=== PATIENT | female | born 1970 | race African-American/Black ===

== ENCOUNTER 2019-01-29 15:16 | Observation (INO) | payer SELFPAY ==
[2019-01-29] MEDS ORDERED: ASPIRIN 81 MG TABLET, CHEWABLE PO ONE (15:40)
--- NOTE | 2019-01-29 15:41 | ER Document Report ---
ED Medical Screen (RME) - General Chief Complaint: Abdominal Pain Stated Complaint: ABDOMINAL PAIN Time Seen by Provider: 01/29/19 15:35 Mode of Arrival: Ambulatory Information source: Patient Notes: Patient presents to the emergency department with multiple complaints. She complains of lower abdominal pain that radiates to her low back and down her buttocks. Also reports recent problems with constipation. Reports history of hemorrhoids. Reports for the past 2 stools, diarrhea, she has had blood in the toilet. Also complains of chest tightness radiates up her left side of her neck. Reports history of abnormal stress test. Denies fever vomiting pain with void. Reports when she does try to have a bowel movement she has sharp pains in her rectum. I have greeted and performed a rapid initial assessment of this patient. A comprehensive ED assessment and evaluation of the patient, analysis of test results and completion of the medical decision making process will be conducted by additional ED providers. Dictation of this chart was performed using voice recognition software; therefore, there may be some unintended grammatical errors. TRAVEL OUTSIDE OF THE [place] IN LAST 30 DAYS: No - Related Data Allergies/Adverse Reactions: No Known Allergies Allergy (Verified 09/07/13 10:38) Past Medical History - Past Medical History Cardiac Medical History: Reports: Hx Hypercholesterolemia - off medications 06/07/17, Hx Hypertension - off medcations 06/07/17 Pulmonary Medical History: Reports: Hx Pneumonia, Hx Sleep Apnea Denies: Hx Tuberculosis Neurological Medical History: Reports: Hx MigraineComment Only: Hx Seizures - POSSIBLE Renal/ Medical History: Reports: Hx Ovarian Cysts. Denies: Hx Peritoneal Dialysis Psychiatric Medical History: Reports: Hx Depression Past Surgical History: Reports: Hx Orthopedic Surgery - r foot 0 hardware, Hx Tubal Ligation - Immunizations Immunizations up to date: Yes Hx Diphtheria, Pertussis, Tetanus Vaccination: Yes - 06/07/2017 Physical Exam - Vital signs Vitals: Temp Pulse Resp BP Pulse Ox 98.5 F 83 17 140/90 H 97 01/29/19 15:26 01/29/19 15:26 01/29/19 15:26 01/29/19 15:26 01/29/19 15:26 Course - Vital Signs Vital signs: Temp Pulse Resp BP Pulse Ox 98.5 F 65 16 119/72 97 01/29/19 15:26 01/29/19 18:18 01/29/19 20:01 01/29/19 20:01 01/29/19 20:01 - Laboratory Result Diagrams: 01/29/19 15:45 01/29/19 15:45 Laboratory results interpreted by me: 01/29/19 15:45 Glucose 124 H Total Bilirubin 1.4 H
[2019-01-29 16:18] LABS: ABSOLUTE EOSINOPHILS # (AUTO) 0.2 10^3/uL (0.0-0.6); ABSOLUTE LYMPHOCYTES (AUTO) 2.1 10^3/uL (0.5-4.7); ABSOLUTE MONOCYTES (AUTO) 0.3 10^3/uL (0.1-1.4); ABSOLUTE NEUT (AUTO) 2.2 10^3/uL (1.7-8.2); BASOPHILS % (AUTO) 0.7 % (0-2); EOSINOPHILS % (AUTO) 3.4 % (0-6); HEMATOCRIT 38.2 % (36.0-47.0); HEMOGLOBIN 12.9 g/dL (12.0-15.5); LYMPHOCYTES % (AUTO) 44.2 % (13-45); MEAN CORPUSCULAR HEMOGLOBIN 30.4 pg (27.0-33.4); MEAN CORPUSCULAR HGB CONC 33.8 g/dL (32.0-36.0); MEAN CORPUSCULAR VOLUME 90 fl (80-97); MONOCYTES % (AUTO) 6.3 % (3-13); PLATELET COUNT 223 10^3/uL (150-450); RED BLOOD COUNT 4.25 10^6/uL (3.72-5.28); RED CELL DISTRIBUTION WIDTH 13.6 % (11.5-14.0); SEGMENTED NEUTROPHILS % (AUTO) 45.4 % (42-78); TOTAL CELLS COUNTED % (AUTO) 100 %; WHITE BLOOD COUNT 4.9 10^3/uL (4.0-10.5)
[2019-01-29 16:23] LABS: APPEARANCE,URINE CLEAR; BILIRUBIN,URINE NEGATIVE (NEGATIVE); COLOR,URINE YELLOW; GLUCOSE, URINE NEGATIVE (NEGATIVE); KETONES,URINE NEGATIVE (NEGATIVE); LEUKOCYTE ESTERASE,URINE NEGATIVE (NEGATIVE); NITRITE,URINE NEGATIVE (NEGATIVE); PROTEIN,URINE NEGATIVE (NEGATIVE); URINE SPECIFIC GRAVITY 1.021; UROBILINOGEN,URINE NEGATIVE mg/dL (<2.0)
--- NOTE | 2019-01-29 16:29 | RADIOLOGY REPORT (SQ) ---
EXAM DESCRIPTION: CHEST 2 VIEWS COMPLETED DATE/TIME: 01/29/2019 4:16 pm REASON FOR STUDY: chest tightness COMPARISON: 07/01/2016 EXAM PARAMETERS: NUMBER OF VIEWS: two views TECHNIQUE: Digital Frontal and Lateral radiographic views of the chest acquired. RADIATION DOSE: NA LIMITATIONS: none FINDINGS: LUNGS AND PLEURA: No opacities, masses or pneumothorax. No pleural effusion. MEDIASTINUM AND HILAR STRUCTURES: No masses or contour abnormalities. HEART AND VASCULAR STRUCTURES: Heart normal size. No evidence for failure. BONES: No acute findings. HARDWARE: None in the chest. OTHER: No other significant finding. IMPRESSION: No acute abnormality of the lungs. No focal airspace opacity. TECHNICAL DOCUMENTATION: JOB ID: [id number] [employer]- All Rights Reserved Reading location - IP/workstation name: [email or web address]
[2019-01-29 16:35] LABS: ALANINE AMINOTRANSFERASE 32 U/L (9-52); ALBUMIN 4.4 g/dL (3.5-5.0); ALKALINE PHOSPHATASE 72 U/L (38-126); ANION GAP 7 (5-19); ASPARTATE AMINO TRANSFERASE 23 U/L (14-36); BILIRUBIN,DIRECT 0.3 mg/dL (0.0-0.4); BILIRUBIN,TOTAL 1.4 mg/dL (0.2-1.3); BLOOD UREA NITROGEN 10 mg/dL (7-20); CALCIUM 9.5 mg/dL (8.4-10.2); CARBON DIOXIDE 28 mmol/L (22-30); CHLORIDE 104 mmol/L (98-107); CREATINE KINASE 59 U/L (30-135); GLUCOSE 124 mg/dL (75-110); POTASSIUM 4.3 mmol/L (3.6-5.0); SODIUM 138.9 mmol/L (137-145); TOTAL PROTEIN 7.8 g/dL (6.3-8.2)
--- NOTE | 2019-01-29 16:35 | RADIOLOGY REPORT (SQ) ---
EXAM DESCRIPTION: KUB/ABDOMEN (SINGLE VIEW) COMPLETED DATE/TIME: 01/29/2019 4:16 pm REASON FOR STUDY: ABD PAIN, HX CONSTIPATION COMPARISON: 02/27/2014 NUMBER OF VIEWS: One view. TECHNIQUE: Supine radiographic image of the abdomen acquired. LIMITATIONS: None. FINDINGS: BOWEL GAS PATTERN: Nonobstructive pattern of bowel gas with gas present to the rectum. No large burden of stool in the colon. CALCIFICATIONS: No suspicious calcifications. SOFT TISSUES: No gross mass or suggestion of organomegaly. HARDWARE: None in the abdomen. BONES: No acute fracture. No worrisome bone lesions. OTHER: No other significant finding. IMPRESSION: Nonobstructive pattern of bowel gas with gas present to the rectum. No large burden of stool in the colon. No free air in the abdomen on supine radiographs. TECHNICAL DOCUMENTATION: JOB ID: [id number] [employer]- All Rights Reserved Reading location - IP/workstation name: [email or web address]
--- NOTE | 2019-01-29 16:45 | ER Document Report ---
ED General - General Chief Complaint: Abdominal Pain Stated Complaint: ABDOMINAL PAIN Time Seen by Provider: 01/29/19 15:35 Mode of Arrival: Ambulatory Information source: Patient TRAVEL OUTSIDE OF THE [place] IN LAST 30 DAYS: No - HPI Patient complains to provider of: Chest pain, shortness of breath, abdominal pain, blood in stool Onset: Other - 2 days Onset/Duration: Persistent Quality of pain: Cramping Severity: Moderate Pain Level: 3 Associated symptoms: Diarrhea. denies: Chills, Fever, Nausea, Vomiting Exacerbated by: Denies Relieved by: Denies Similar symptoms previously: No Recently seen / treated by doctor: No Notes: 48-year-old -English female with the elevated blood pressure history coming in for lower abdominal pain for 2 days. Now having her a bright red blood in the stool. Abdominal pain goes to the back and down to her feet. Also shortness of breath and chest pain and tightness in her chest. Left-sided neck pain as well. Intermittent. Diagnosed in the past with lupus but never followed up with rheumatology to actually confirm. - Related Data Allergies/Adverse Reactions: No Known Allergies Allergy (Verified 09/07/13 10:38) Past Medical History - General Information source: Patient - Social History Smoking Status: Unknown if Ever Smoked Frequency of alcohol use: None Lives with: Alone Family History: Reviewed & Not Pertinent Patient has suicidal ideation: No Patient has homicidal ideation: No - Past Medical History Cardiac Medical History: Reports: Hx Hypercholesterolemia - off medications 06/07/17, Hx Hypertension - off medcations 06/07/17 Pulmonary Medical History: Reports: Hx Pneumonia, Hx Sleep Apnea Denies: Hx Tuberculosis Neurological Medical History: Reports: Hx MigraineComment Only: Hx Seizures - POSSIBLE Renal/ Medical History: Reports: Hx Ovarian Cysts. Denies: Hx Peritoneal Dialysis Psychiatric Medical History: Reports: Hx Depression Past Surgical History: Reports: Hx Orthopedic Surgery - r foot 0 hardware, Hx Tubal Ligation - Immunizations Immunizations up to date: Yes Hx Diphtheria, Pertussis, Tetanus Vaccination: Yes - 06/07/2017 Review of Systems - Review of Systems Notes: Constitutional: No fevers. No chills. EENT: No eye redness. No eye pain. No ear pain. No sore throat. Cardiovascular: Positive for chest pain Respiratory: Positive shortness of breath Gastrointestinal: Positive for abdominal pain and rectal bleeding. Positive for nausea and vomiting and diarrhea Genitourinary: Atraumatic. No lesions. No pain. No discharge. Musculoskeletal: Atraumatic. No swelling. No deformities. Skin: No rash or lesions. Lymphatic: No swollen lymph nodes. Neurologic: No headache. No syncope. Psychiatric: No suicidal or homicidal ideation. Physical Exam - Vital signs Vitals: Temp Pulse Resp BP Pulse Ox 98.5 F 83 17 140/90 H 97 01/29/19 15:26 01/29/19 15:26 01/29/19 15:26 01/29/19 15:26 01/29/19 15:26 - Notes Notes: General: Well-developed, well-nourished. In no acute distress. Non-toxic appearing. Cardiac: Well-perfused. Regular rate and rhythm. No murmurs, rubs, or gallops. Pulmonary: No respiratory distress. No cyanosis. Bilateral lung fiels are clear to auscultation. Abdominal: Non-distended. Non-rigid. Bowels sounds are present in all four quadrants. No guarding or rebound. HEENT: Head is atraumatic. Conjunctivae not reddened. No tearing. PERRL. EOMI. Orbits atraumatic. No periorbital swelling or erythema. Oropharynx is without erythema, swelling, or exudates. Neck: Supple. No adenopathy. No meningismus. Dermatologic: Warm with good turgor. No rash. Atraumatic. Chest: Atraumatic. No chest wall tenderness to palpation. Musculoskeletal: Moves all extremities well. No range of motion deficits. no muscular or joint tenderness. No paraspinal muscle tenderness. no midline spinal tenderness or step-off. Genitourinary: Examination deferred Neurologic: No gross neurologic deficits. Psychiatric: Normal mood. Course - Re-evaluation Re-evalutation: 01/29/19 18:19 Patient had her 2-hour repeat troponin drawn. The tech asked me to go by to to take a look at the patient as she is now having some tightness in the left side of her chest going into the left side of her neck and experiencing some mild shortness of breath. She has had aspirin today. I instructed the nurse to get the sublingual nitro spray to see how she feels after 1 squirt of nitroglycerin. Given the development of the chest pain here in the hospital, will probably consider admitting her for observation. - Vital Signs Vital signs: Temp Pulse Resp BP Pulse Ox 98.5 F 65 16 119/72 97 01/29/19 15:26 01/29/19 18:18 01/29/19 20:01 01/29/19 20:01 01/29/19 20:01 - Laboratory Result Diagrams: 01/29/19 15:45 01/29/19 15:45 Laboratory results interpreted by me: 01/29/19 15:45 Glucose 124 H Total Bilirubin 1.4 H - EKG Interpretation by [place] EKG shows normal: Sinus rhythm, [place], Intervals, QRS Complexes, ST-T Waves Discharge - Discharge Clinical Impression: Lower abdominal pain Chest pain Qualifiers: Chest pain type: unspecified Qualified Code(s): R07.9 - Chest pain, unspecified Condition: Good Disposition: ADMITTED OBSERVATION Admitting Provider: Anabell (Hospitalist) Unit Admitted: Telemetry
--- NOTE | 2019-01-29 17:41 | RADIOLOGY REPORT (SQ) ---
EXAM DESCRIPTION: CT ABD/PELVIS WITH IV ONLY COMPLETED DATE/TIME: 01/29/2019 5:18 pm REASON FOR STUDY: LOWER ABD PAIN COMPARISON: None. TECHNIQUE: CT scan of the abdomen and pelvis performed using helical scanning technique with dynamic intravenous contrast injection. No oral contrast. Images reviewed with lung, soft tissue, and bone w indows. Reconstructed coronal and sagittal MPR images reviewed. Delayed images for evaluation of the urinary system also acquired. All images stored on PACS. All CT scanners at this facility use dose modulation, iterative reconstruction, and/or weight based d osing when appropriate to reduce radiation dose to as low as reasonably achievable (ALARA). [facility]: Dose Right [facility]: CareDose [facility]: Dose Right [facility]: Teradose 4D [facility]: [employer] CONTRAST TYPE AND DOSE: contrast/concentration: Isovue 350.00 mg/ml; Total Contrast Delivered: 98.0 ml; Total Saline Delivered: 72.0 ml RENAL FUNCTION: None required. The patient is less than 50 years old. RADIATION DOSE: CT Rad equipment meets quality standard of care and radiation dose reduction techniq ues were employed. CTDIvol: 11.5 - 16.2 mGy. DLP: 1410 mGy-cm.. LIMITATIONS: None. FINDINGS: LOWER CHEST: No significant findings. LIVER: Normal size. No enhancing masses. No dilated ducts. SPLEEN: Normal size. No focal lesions. PANCREAS: No masses identified. No significant calcifications. No adjacent inflammation or peripancre atic fluid collections. Pancreatic duct not dilated. GALLBLADDER: No calcified stones. No inflammatory changes to suggest cholecystitis. ADRENAL GLANDS: No significant masses. RIGHT KIDNEY AND URETER: No cysts identified. No solid masses identified. Lower pole 5 mm calcified stone. No hydronephrosis or hydroureter. LEFT KIDNEY AND URETER: No cysts identified. No solid masses identified. No calcified stones. No hydr onephrosis or hydroureter. AORTA AND VESSELS: No aneurysm. No dissection. Renal arteries, SMA, celiac without significant stenos is. RETROPERITONEUM: No bulky retroperitoneal adenopathy. BOWEL AND PERITONEAL CAVITY: No obstruction or inflammatory changes. No free fluid. APPENDIX: Normal. PELVIS: No mass. No free fluid. Unremarkable bladder. ABDOMINAL WALL: No masses. No hernias. BONES: No acute findings. OTHER: No other significant finding. IMPRESSION: NO ACUTE FINDINGS IN THE ABDOMEN OR PELVIS ON CT SCAN WITH IV CONTRAST. TECHNICAL DOCUMENTATION: JOB ID: [id number] Quality ID # [id number]: Final reports with documentation of one or more dose reduction techniques (e.g., Au tomated exposure control, adjustment of the mA and/or kV according to patient size, use of iterative reconstruction technique) 2010 [employer]- All Rights Reserved Reading location - IP/workstation name: [email or web address]
[2019-01-29] MEDS: NITROGLYCERIN 0.4 MG/TAB 25 TAB/BOTTLE SL PRN ×2 (18:23→18:36)
[2019-01-29] MEDS ORDERED: ZOLPIDEM TARTRATE 5 MG TABLET PO PRN (20:27)
[2019-01-29] MEDS ORDERED: MAG HYDROX/AL HYDROX/SIMETH SUSP 30 ML UDCUP PO PRN (20:27)
[2019-01-29] MEDS ORDERED: ONDANSETRON HCL INJ/PF 4 MG/2 ML SDV IV PRN (20:27)
[2019-01-29] MEDS ORDERED: MAGNESIUM HYDROXIDE SUSP 30 ML UDCUP PO PRN (20:27)
[2019-01-29] MEDS ORDERED: ACETAMINOPHEN 325 MG TABLET PO PRN (20:34)
[2019-01-29] MEDS ORDERED: HYDRALAZINE HCL INJ/PF 20 MG/1 ML SDV IV PRN (20:34)
[2019-01-29] MEDS ORDERED: NITROGLYCERIN 0.4 MG/TAB 25 TAB/BOTTLE SL PRN (20:34)
[2019-01-29] MEDS ORDERED: MORPHINE SULFATE 10 MG/ML INJ IV PRN ×4 (20:34→20:49)
--- NOTE | 2019-01-29 22:27 | EKG REPORT ---
SEVERITY:- BORDERLINE ECG - SINUS RHYTHM LVH BY VOLTAGE : Confirmed by: Brett Meyer 29-Jan-2019 22:26:47
--- NOTE | 2019-01-29 22:27 | EKG REPORT ---
SEVERITY:- ABNORMAL ECG - SINUS RHYTHM FIRST DEGREE AV BLOCK : Confirmed by: Brett Meyer 29-Jan-2019 22:26:36
[2019-01-29] MEDS: FAMOTIDINE 20 MG TABLET PO SCH (23:00)
[2019-01-29] MEDS: RINGERS SOLUTION,LACTATED 1,000 ML IV PRN (23:00)
--- NOTE | 2019-01-30 00:05 | ADVANCED CARE ---
- Diagnosis (1) Chest pain Diagnosis Current: Yes (2) Lower abdominal pain Diagnosis Current: Yes (3) Diarrhea Diagnosis Current: Yes (4) Bleeding hemorrhoids Diagnosis Current: Yes Attendance: Patient and myself Resuscitation Status: Full Code Discussion: After brief discussion patient is indicated that she wishes to remain full code resuscitation status for any cardiac or respiratory arrest that may occur during this hospital stay. Additionally she has named Ronnell Chester as her designated surrogate medical decision-maker. Care Planning Goals: 1. Patient will remain full CODE STATUS. 2. Ronnell Chester is the patient's designated surrogate medical decision-maker. Document(s) Completed: The following information will be entered into the patient's permanent medical record as well as her current medical record and orders via EMR entry: 1. Patient will remain full CODE STATUS. 2. Ronnell Chester is the patient's designated surrogate medical decision-maker. Time Spent: 6 minutes
--- NOTE | 2019-01-30 00:30 | PDOC H&P ---
History of Present Illness Admission Date/PCP: 01/29/2019 19:32 Patient complains of: Chest pain History of Present Illness: ZORA SUMNER is a 48 year old female who presented to the emergency room with a 2-day history of chest pain. She admits, that for the last 2 days, she has experienced several intermittent episodes of sudden onset, moderate to severe, constant, left submammary anterior chest tightness, radiating to the left neck, of several minutes up to 2 hours in duration and worsened by exertion. The symptoms have occurred both at rest and while active and have been accompanied by moderate dyspnea and diaphoresis. She has not identified any additional aggravating or ameliorating factors for her chest pain but she does admit numerous prior similar episodes over the course of the last 6 years. She also complains of a constantly present, waxing and waning, bilateral lower abdominal, gripping pressure pain, of gradual onset over the last 7 days, that has been worse (severe) over the last 2 days, with radiation around to her lower back and through to her buttocks and then down both legs to her feet. The abdominal pain has been accompanied by headaches, night sweats, decreased appetite, diarrhea and hemorrhoidal bleeding. Her pain is worsened by lying on her stomach in bed. She has not identified any other aggravating or ameliorating factors for her abdominal pain. She admits prior similar episodes of abdominal pain when she had kidney stones. In the emergency room she was found to have a normal troponin level and an EKG which revealed no evidence of acute myocardial injury or ischemia. The remainder of the patient's laboratory evaluation was unremarkable and her radiologic evaluation including a chest x-ray, a KUB and a CT of the abdomen and pelvis was also unremarkable. Patient was subsequently admitted for further evaluation and treatment. Past Medical History Cardiac Medical History: Reports: Coronary Artery Disease - Positive stress test?, Hyperlipidema - off medications 06/07/17, Hypertension - off medcations 06/07/17 Denies: Atrial Fibrillation, Congestive Heart Failure, Myocardial Infarction Pulmonary Medical History: Reports: Bronchitis, Pneumonia, Sleep Apnea - Uses BiPAP? Denies: Tuberculosis EENT Medical History: Denies: Cataracts, Ears - Hearing aids Neurological Medical History: Reports: Migraine, Seizures - Possible/questionable Denies: Hemorrhagic CVA, Ischemic CVA, Multiple Sclerosis Endocrine Medical History: Reports: Obesity, Other - Hyperglycemia Denies: Diabetes Mellitus Type 1, Diabetes Mellitus Type 2, Hyperthyroidism, Hypothyroidism Renal/ Medical History: Reports: Nephrolithiasis Denies: Chronic Kidney Disease Malignancy Medical History: Reports: None GI Medical History: Reports: Other - Bleeding hemorrhoids Denies: Cirrhosis, Crohn's Disease, Hepatitis, Ulcerative Colitis Musculoskeltal Medical History: Reports: Arthritis - Intermittent multiple and variable joint swelling and pain, Other - Positive FLAKITO: Failed to follow-up for SLE evaluation Denies: Fibromyalgia Skin Medical History: Denies: Eczema, Psoriasis Psychiatric Medical History: Reports: Depression Denies: Alcohol Dependency, Substance Abuse, Tobacco Dependency Traumatic Medical History: Reports: None Hematology: Denies: Anemia, Bleeding Tendencies Infectious Medical History: Reports: None Past Surgical History Past Surgical History: Reports: Orthopedic Surgery - Right foot, Tubal Ligation Social History Information Source: Patient Lives with: Alone Smoking Status: Never Smoker Frequency of Alcohol Use: None Hx Recreational Drug Use: No Drugs: None Hx Prescription Drug Abuse: No - Advance Directive Resuscitation Status: Full Code Surrogate healthcare decision maker:: Ronnell Chester Family History Family History: CAD, CVA, DM, Hypertension. denies: Malignancy Parental Family History Reviewed: Yes Children Family History Reviewed: No Sibling(s) Family History Reviewed.: Yes Medication/Allergy Home Medications: Atorvastatin Calcium [Lipitor 10 mg Tablet] 10 mg PO QHS #30 tablet 12/03/13 Docusate Sodium [Colace 100 mg Capsule] 100 mg PO BIDP PRN #60 capsule 12/03/13 Ibuprofen [Motrin 400 mg Tablet] 400 mg PO Q8HP PRN #30 tablet 12/03/13 Lansoprazole [Prevacid 30 mg Odt Tablet] 30 mg PO ACBRKFST #30 tab.rap.dr 12/03/13 Lisinopril [Prinivil 10 mg Tablet] 10 mg PO DAILY #30 tablet 12/03/13 Hydrocodone/Acetaminophen [[place] 5-325 Tablet] 1 each PO Q6 PRN #12 tablet 08/28/14 Oxycodone HCl/Acetaminophen [Percocet 5-325 mg Tablet] 1 - 2 tab PO ASDIR PRN #15 tablet 09/30/15 Fluconazole [Diflucan] 150 mg PO ONCE PRN #1 tablet 04/29/16 Tramadol HCl [Ultram] 50 mg PO Q6 #30 tablet 04/29/16 Allergies/Adverse Reactions: No Known Allergies Allergy (Verified 09/07/13 10:38) Review of Systems Constitutional: PRESENT: as per HPI, anorexia, headache(s), night sweats. ABSENT: chills, fever(s) Eyes: ABSENT: visual disturbances, other - Eye pain Ears: ABSENT: hearing changes, other - Ear pain Nose, Mouth, and Throat: ABSENT: mouth pain, sore throat Cardiovascular: PRESENT: as per HPI, chest pain. ABSENT: edema, orthropnea, palpitations Respiratory: ABSENT: cough, dyspnea Gastrointestinal: PRESENT: as per HPI, abdominal pain, diarrhea, hematochezia, other - Rectal pain. ABSENT: constipation Genitourinary: ABSENT: difficulty urinating, dysuria, hematuria Musculoskeletal: PRESENT: as per HPI - Abdominal pain radiates to back and buttocks and then down the back of both legs. ABSENT: back pain, joint swelling, muscle weakness Integumentary: PRESENT: as per HPI, diaphoresis. ABSENT: pruritus, rash Neurological: ABSENT: confusion, convulsions, focal weakness, memory loss, syncope Psychiatric: ABSENT: anxiety, depression Endocrine: ABSENT: cold intolerance, heat intolerance Hematologic/Lymphatic: ABSENT: easy bleeding, easy bruising Physical Exam Vital Signs: Temp Pulse Resp BP Pulse Ox 98.5 F 65 17 137/90 H 99 01/29/19 15:26 01/29/19 18:18 01/29/19 18:18 01/29/19 18:18 01/29/19 18:18 Intake & Output 01/27/19 01/28/19 01/29/19 23:59 23:59 23:59 Weight 86.3 kg General appearance: PRESENT: no acute distress, cooperative, obese Head exam: PRESENT: atraumatic, normocephalic Eye exam: ABSENT: conjunctival injection, scleral icterus Ear exam: PRESENT: normal external ear exam. ABSENT: bleeding, drainage Mouth exam: PRESENT: dry mucosa, neck supple Neck exam: ABSENT: JVD, thyromegaly, tracheal deviation Respiratory exam: PRESENT: clear to auscultation alex, symmetrical, unlabored Cardiovascular exam: PRESENT: RRR. ABSENT: clicks, gallop, rubs Pulses: PRESENT: normal radial pulses, normal dorsalis pedis pul Vascular exam: PRESENT: normal capillary refill. ABSENT: pallor GI/Abdominal exam: PRESENT: normal bowel sounds, soft, tenderness - Minimal lower abdominal tenderness on palpation with no localization Rectal exam: PRESENT: deferred Extremities exam: ABSENT: joint swelling, pedal edema, tenderness Musculoskeletal exam: PRESENT: full ROM, normal inspection. ABSENT: tenderness Neurological exam: PRESENT: alert, oriented to person, oriented to place, oriented to time, oriented to situation, CN II-XII grossly intact. ABSENT: motor sensory deficit Psychiatric exam: PRESENT: appropriate affect, normal mood Skin exam: PRESENT: dry, intact, warm. ABSENT: jaundice, rash, urticaria Results Laboratory Results: 01/29/19 15:45 01/29/19 15:45 01/29/19 01/29/19 01/29/19 15:45 15:45 15:45 WBC 4.9 RBC 4.25 Hgb 12.9 Hct 38.2 MCV 90 MCH 30.4 MCHC 33.8 RDW 13.6 Plt Count 223 Seg Neutrophils % 45.4 Lymphocytes % 44.2 Monocytes % 6.3 Eosinophils % 3.4 Basophils % 0.7 Absolute Neutrophils 2.2 Absolute Lymphocytes 2.1 Absolute Monocytes 0.3 Absolute Eosinophils 0.2 Absolute Basophils 0.0 Sodium 138.9 Potassium 4.3 Chloride 104 Carbon Dioxide 28 Anion Gap 7 BUN 10 Creatinine 0.73 Est GFR ( Amer) > 60 Est GFR (Non-Af Amer) > 60 Glucose 124 H Calcium 9.5 Total Bilirubin 1.4 H AST 23 ALT 32 Alkaline Phosphatase 72 Total Protein 7.8 Albumin 4.4 Urine Color YELLOW Urine Appearance CLEAR Urine pH 5.0 Ur Specific [place] 1.021 Urine Protein NEGATIVE Urine Glucose (UA) NEGATIVE Urine Ketones NEGATIVE Urine Blood NEGATIVE Urine Nitrite NEGATIVE Ur Leukocyte Esterase NEGATIVE Urine WBC (Auto) 1 Urine RBC (Auto) 1 01/29/19 01/29/19 01/29/19 15:45 15:45 18:10 Creatine Kinase 59 Troponin I < 0.012 < 0.012 Impressions: KUB X-Ray 01/29/19 00:00 IMPRESSION: Nonobstructive pattern of bowel gas with gas present to the rectum. No large burden of stool in the colon. No free air in the abdomen on supine radiographs. Chest X-Ray 01/29/19 15:39 IMPRESSION: No acute abnormality of the lungs. No focal airspace opacity. Abdomen/Pelvis CT 01/29/19 16:06 IMPRESSION: NO ACUTE FINDINGS IN THE ABDOMEN OR PELVIS ON CT SCAN WITH IV CONTRAST. Assessment and Plan - Diagnosis (1) Chest pain Qualifiers: Chest pain type: unspecified Qualified Code(s): R07.9 - Chest pain, unspecified Is this a current diagnosis for this admission?: Yes Plan: Serial cardiac enzymes and EKGs will be obtained as part of her chest pain evaluation. Her chest pain will be treated with sublingual nitroglycerin initially and for residual pain she will receive morphine sulfate 2 to 4 mg IV every 2 hours on a as needed basis via sliding scale. A Cardiolite cardiac stress test will be obtained. (2) Lower abdominal pain Is this a current diagnosis for this admission?: Yes Plan: She will be observed for changes in her abdominal pain or presentation. A surgical consult will be obtained. Serial CBCs, metabolic profiles and magnesium levels will be used to follow the patient's course. (3) Diarrhea Qualifiers: Diarrhea type: unspecified type Qualified Code(s): R19.7 - Diarrhea, unspecified Is this a current diagnosis for this admission?: Yes Plan: Patient's diarrhea course will be observed with no specific therapy at this time. She will receive supportive and symptomatic care as appropriate. A stool specimen for culture for pathogens, C. difficile and ova and parasites will be obtained. (4) Bleeding hemorrhoids Is this a current diagnosis for this admission?: Yes Plan: A surgical consult will be obtained to evaluate the patient's rectal bleeding/hemorrhoids. A CBC will be followed on a regular basis to evaluate for significant blood loss. - Time Time Spent with patient: 25-34 minutes Medications reviewed and adjusted accordingly: Yes Anticipated discharge: Home - Inpatient Certification Based on my medical assessment, after consideration of the patient's comorbidities, presenting symptoms, or acuity I expect that the services needed warrant INPATIENT care.: No I certify that my determination is in accordance with my understanding of Medicare's requirements for reasonable and necessary INPATIENT services [42 CFR 412.3e].: No Medical Necessity: Need Close Monitoring Due to Risk of Patient Decompensation, Need For Continuous Telemetry Monitoring, Need for Pain Control, Risk of Co mplication if Not Cared For in Hospital, Risk of Diagnosis Which Will Require Inpatient Eval/Care/Monitoring
[2019-01-30 02:29] LABS: CREATINE KINASE MB < 0.22 ng/mL (<4.55); TROPONIN I < 0.012 ng/mL
[2019-01-30] MEDS: RINGERS SOLUTION,LACTATED 1,000 ML IV PRN (05:39)
[2019-01-30 07:41] LABS: HEMATOCRIT 34.7 % (36.0-47.0); MEAN CORPUSCULAR HEMOGLOBIN 30.7 pg (27.0-33.4); MEAN CORPUSCULAR HGB CONC 34.6 g/dL (32.0-36.0); MEAN CORPUSCULAR VOLUME 89 fl (80-97); PLATELET COUNT 185 10^3/uL (150-450); RED BLOOD COUNT 3.91 10^6/uL (3.72-5.28); RED CELL DISTRIBUTION WIDTH 13.6 % (11.5-14.0)
[2019-01-30 08:05] LABS: ANION GAP 7 (5-19); BLOOD UREA NITROGEN 7 mg/dL (7-20); CALCIUM 8.8 mg/dL (8.4-10.2); CARBON DIOXIDE 27 mmol/L (22-30); CHLORIDE 103 mmol/L (98-107); GLUCOSE 131 mg/dL (75-110); POTASSIUM 3.6 mmol/L (3.6-5.0); SODIUM 137.4 mmol/L (137-145); TRIGLYCERIDES 101 mg/dL (<150)
[2019-01-30 08:11] LABS: FREE T3 4.24 pg/mL (2.77-5.27); FREE T4 (FREE THYROXINE) 1.06 ng/dL (0.78-2.19)
[2019-01-30 08:16] LABS: DIRECT LDL 173 mg/dL (<100)
[2019-01-30 08:20] LABS: CREATINE KINASE MB < 0.22 ng/mL (<4.55); TROPONIN I < 0.012 ng/mL
[2019-01-30 08:24] LABS: THYROID STIMULATING HORMONE 3.66 uIU/mL (0.47-4.68)
[2019-01-30] MEDS: FAMOTIDINE 20 MG TABLET PO SCH (10:42)
[2019-01-30] MEDS: DOCUSATE SODIUM 100 MG CAPSULE PO SCH ×2 (10:42→17:11)
[2019-01-30] MEDS ORDERED: ONDANSETRON HCL INJ/PF 4 MG/2 ML SDV IV PRN (13:30)
[2019-01-30] MEDS ORDERED: ZOLPIDEM TARTRATE 5 MG TABLET PO PRN (13:30)
[2019-01-30] MEDS ORDERED: NITROGLYCERIN 0.4 MG/TAB 25 TAB/BOTTLE ONE (14:17)
[2019-01-30] MEDS ORDERED: REGADENOSON INJ 0.4 MG/5 ML DISP.SYRIN IV ONE (14:17)
--- NOTE | 2019-01-30 15:48 | PDOC CONSULTATION ---
Consultation Consult Date: 01/30/19 Provider Consulted: TYLER MCCALL Consult reason:: Bleeding hemorrhoids History of Present Illness Admission Date/PCP: 01/29/19 23:24 Patient complains of: chest pains History of Present Illness: ZORA SUMNER is a 48 year old female who was admitted for chest pains yesterday. Also, c/o occasional burning sensation when she has a BM and yesterday has some blood in the stools. Just had stressed test. Past Medical History Cardiac Medical History: Reports: Coronary Artery Disease - Positive stress test?, Hyperlipidema - off medications 06/07/17, Hypertension - off medcations 06/07/17 Denies: Atrial Fibrillation, Congestive Heart Failure, Myocardial Infarction Pulmonary Medical History: Reports: Bronchitis, Pneumonia, Sleep Apnea - Uses BiPAP? Denies: Tuberculosis EENT Medical History: Denies: Cataracts, Ears - Hearing aids Neurological Medical History: Reports: Migraine, Seizures - Possible/questionable Denies: Hemorrhagic CVA, Ischemic CVA, Multiple Sclerosis Endocrine Medical History: Reports: Obesity, Other - Hyperglycemia Denies: Diabetes Mellitus Type 1, Diabetes Mellitus Type 2, Hyperthyroidism, Hypothyroidism Renal/ Medical History: Reports: Nephrolithiasis Denies: Chronic Kidney Disease Malignancy Medical History: Reports: None GI Medical History: Reports: Other - Bleeding hemorrhoids Denies: Cirrhosis, Crohn's Disease, Hepatitis, Ulcerative Colitis Musculoskeltal Medical History: Reports: Arthritis - Intermittent multiple and variable joint swelling and pain, Other - Positive FLAKITO: Failed to follow-up for SLE evaluation Denies: Fibromyalgia Skin Medical History: Denies: Eczema, Psoriasis Psychiatric Medical History: Reports: Depression Denies: Alcohol Dependency, Substance Abuse, Tobacco Dependency Traumatic Medical History: Reports: None Hematology: Denies: Anemia, Bleeding Tendencies Infectious Medical History: Reports: None Past Surgical History Past Surgical History: Reports: Orthopedic Surgery - Right foot, Tubal Ligation Social History Lives with: Alone Smoking Status: Never Smoker Frequency of Alcohol Use: None Hx Recreational Drug Use: No Drugs: None Hx Prescription Drug Abuse: No - Advance Directive Resuscitation Status: Full Code Family History Family History: CAD, CVA, DM, Hypertension. denies: Malignancy Parental Family History Reviewed: Yes Children Family History Reviewed: No Sibling(s) Family History Reviewed.: No Medication/Allergy Home Medications: No Home Medications 01/30/19 Allergies/Adverse Reactions: No Known Allergies Allergy (Verified 09/07/13 10:38) Review of Systems Constitutional: PRESENT: as per HPI Physical Exam Vital Signs: Temp Pulse Resp BP Pulse Ox 98.2 F 83 17 122/70 97 01/30/19 11:03 01/30/19 14:00 01/30/19 11:03 01/30/19 11:03 01/30/19 11:03 Intake & Output 01/29/19 01/30/19 01/31/19 06:59 06:59 06:59 Intake Total 1000 Balance 1000 Weight 89.3 kg General appearance: PRESENT: no acute distress Head exam: PRESENT: atraumatic Eye exam: PRESENT: conjunctiva pink Mouth exam: PRESENT: neck supple Neck exam: PRESENT: full ROM Respiratory exam: PRESENT: clear to auscultation alex Cardiovascular exam: PRESENT: RRR Pulses: PRESENT: normal radial pulses Vascular exam: PRESENT: normal capillary refill GI/Abdominal exam: PRESENT: soft - non tender Rectal exam: PRESENT: other - good sphincter tone Has a non bleeding small external hemorrhoid and internal hemorrhoid. No fissure palpated but has a small firm non tender small mass posterior to rectum about 2x3 cm. This maybe an old thrombosed hemorrhoid. There is no blood on the examining finger. She had colonoscopy done by [facility] 2 years ago which was normal according yo the patient except for hemrrhoids. Musculoskeletal exam: PRESENT: ambulatory Neurological exam: PRESENT: alert, oriented to person, oriented to place, oriented to time, oriented to situation Psychiatric exam: PRESENT: appropriate affect Skin exam: PRESENT: normal color, warm Results Laboratory Results: 01/30/19 06:55 01/30/19 06:55 01/29/19 01/29/19 01/29/19 15:45 15:45 15:45 WBC 4.9 RBC 4.25 Hgb 12.9 Hct 38.2 MCV 90 MCH 30.4 MCHC 33.8 RDW 13.6 Plt Count 223 Seg Neutrophils % 45.4 Lymphocytes % 44.2 Monocytes % 6.3 Eosinophils % 3.4 Basophils % 0.7 Absolute Neutrophils 2.2 Absolute Lymphocytes 2.1 Absolute Monocytes 0.3 Absolute Eosinophils 0.2 Absolute Basophils 0.0 Sodium 138.9 Potassium 4.3 Chloride 104 Carbon Dioxide 28 Anion Gap 7 BUN 10 Creatinine 0.73 Est GFR ( Amer) > 60 Est GFR (Non-Af Amer) > 60 Glucose 124 H Calcium 9.5 Magnesium Total Bilirubin 1.4 H AST 23 ALT 32 Alkaline Phosphatase 72 Total Protein 7.8 Albumin 4.4 Triglycerides Cholesterol LDL Cholesterol Direct VLDL Cholesterol HDL Cholesterol TSH Free T4 Free T3 pg/mL Urine Color YELLOW Urine Appearance CLEAR Urine pH 5.0 Ur Specific [place] 1.021 Urine Protein NEGATIVE Urine Glucose (UA) NEGATIVE Urine Ketones NEGATIVE Urine Blood NEGATIVE Urine Nitrite NEGATIVE Ur Leukocyte Esterase NEGATIVE Urine WBC (Auto) 1 Urine RBC (Auto) 1 01/30/19 01/30/19 01/30/19 06:55 06:55 06:55 WBC 4.0 RBC 3.91 Hgb 12.0 Hct 34.7 L MCV 89 MCH 30.7 MCHC 34.6 RDW 13.6 Plt Count 185 Seg Neutrophils % Lymphocytes % Monocytes % Eosinophils % Basophils % Absolute Neutrophils Absolute Lymphocytes Absolute Monocytes Absolute Eosinophils Absolute Basophils Sodium 137.4 Potassium 3.6 Chloride 103 Carbon Dioxide 27 Anion Gap 7 BUN 7 Creatinine 0.68 Est GFR ( Amer) > 60 Est GFR (Non-Af Amer) > 60 Glucose 131 H Calcium 8.8 Magnesium 1.7 Total Bilirubin AST ALT Alkaline Phosphatase Total Protein Albumin Triglycerides 101 Cholesterol 240.70 H LDL Cholesterol Direct 173 H VLDL Cholesterol 20.0 HDL Cholesterol 39 L TSH 3.66 Free T4 1.06 Free T3 pg/mL 4.24 Urine Color Urine Appearance Urine pH Ur Specific [place] Urine Protein Urine Glucose (UA) Urine Ketones Urine Blood Urine Nitrite Ur Leukocyte Esterase Urine WBC (Auto) Urine RBC (Auto) 01/29/19 01/29/19 01/29/19 15:45 15:45 18:10 Creatine Kinase 59 CK-MB (CK-2) Troponin I < 0.012 < 0.012 01/29/19 01/29/19 01/30/19 18:10 18:10 00:44 Creatine Kinase 60 54 CK-MB (CK-2) < 0.22 Troponin I Cancelled 01/30/19 01/30/19 01/30/19 00:44 06:55 06:55 Creatine Kinase 50 CK-MB (CK-2) < 0.22 < 0.22 Troponin I < 0.012 < 0.012 Impressions: KUB X-Ray 01/29/19 00:00 IMPRESSION: Nonobstructive pattern of bowel gas with gas present to the rectum. No large burden of stool in the colon. No free air in the abdomen on supine radiographs. Chest X-Ray 01/29/19 15:39 IMPRESSION: No acute abnormality of the lungs. No focal airspace opacity. Abdomen/Pelvis CT 01/29/19 16:06 IMPRESSION: NO ACUTE FINDINGS IN THE ABDOMEN OR PELVIS ON CT SCAN WITH IV CONTRAST. Assessment & Plan - Time Time Spent: 30 to 50 Minutes - Plan Summary Plan Summary: No bleeding and nosignificant pains from the hemrrhoids. OK to f/U in the surgical clinic about a week after discharge.
[2019-01-30 18:14] VITALS: BP 137/90
--- NOTE | 2019-01-30 20:53 | PDOC DISCHARGE SUMMARY ---
General - Admit/Disc Date/PCP Admission Date/Primary Care Provider: 01/29/19 23:24 Discharge Date: 01/30/19 - Discharge Diagnosis (1) Chest pain Is this a current diagnosis for this admission?: Yes Summary: Patient has history of positive stress test in the past. Her stress test was negative today. She will see Dr. Baca as an outpatient. I started her on atorvastatin, amlodipine, indoor and enteric-coated aspirin daily. Because of her history, despite the negative stress test today, she will likely need an elective cardiac catheterization. (2) Lower abdominal pain Is this a current diagnosis for this admission?: Yes Summary: The patient was seen by Dr. Raoms. No acute intervention as an inpatient. Continue to monitor at home. If pain worsens may need endoscopy. (3) Diarrhea Is this a current diagnosis for this admission?: Yes Summary: No pronounced increase in diarrhea. No foul smell to suggest C. difficile. Treat symptomatically at home. (4) Bleeding hemorrhoids Is this a current diagnosis for this admission?: Yes Summary: The patient was seen by surgery. As noted above there is no planned acute intervention at this time. Applied topical therapy and use stool softeners to avoid straining. (5) Obesity Is this a current diagnosis for this admission?: Yes Summary: Obesity is another risk factor for cardiac disease. She would benefit from aggressive dieting and in addition exercise and/or cardiac rehab. - Additional Information Resuscitation Status: Full Code Discharge Diet: Cardiac Discharge Activity: Activity As Tolerated, Balance Activity w/Rest Prescriptions: Amlodipine Besylate [Norvasc 5 mg Tablet] 5 mg PO DAILY #30 tablet Aspirin [Lo-Dose Aspirin EC] 81 mg PO DAILY 30 Days #30 tablet. Atorvastatin Calcium [Lipitor 40 mg Tablet] 40 mg PO QHS #30 tablet Isosorbide Mononitrate [Imdur 30 mg Tablet.er] 30 mg PO DAILY 30 Days #30 tab.er.24h Home Medications: Amlodipine Besylate [Norvasc 5 mg Tablet] 5 mg PO DAILY #30 tablet 01/30/19 Aspirin [Lo-Dose Aspirin EC] 81 mg PO DAILY 30 Days #30 tablet. 01/30/19 Atorvastatin Calcium [Lipitor 40 mg Tablet] 40 mg PO QHS #30 tablet 01/30/19 Isosorbide Mononitrate [Imdur 30 mg Tablet.er] 30 mg PO DAILY 30 Days #30 tab.er.24h 01/30/19 History of Present Illness Patient complains of: Abdominal pain, chest pain, blood in her stool History of Present Illness: ZORA SUMNER is a 48 year old female who presented with multiple complaints. These included abdominal pain, chest pain and reportedly blood in the stool. Her troponins were all less than 0.012. Her laboratory studies were stable. She was referred to the hospital service for admission to rule out coronary disease. Hospital Course Hospital Course: She was seen by general surgery for the abdominal pain and bleeding hemorrhoids. No acute intervention is planned. Her stress test was negative. I did discuss the case with cardiology. The patient had a borderline to positive stress test 2 years ago. Despite the negative stress test she will likely need cardiac catheterization. In the interim she will be on amlodipine, atorvastatin, indoor and baby aspirin. Physical Exam Vital Signs: Temp Pulse Resp BP Pulse Ox 98.0 F 78 18 149/97 H 99 01/30/19 15:00 01/30/19 15:00 01/30/19 15:00 01/30/19 15:00 01/30/19 15:00 Intake & Output 01/29/19 01/30/19 01/31/19 06:59 06:59 06:59 Intake Total 1000 1473 Balance 1000 1473 Weight 89.3 kg General appearance: PRESENT: no acute distress, obese, well-developed Head exam: PRESENT: atraumatic, normocephalic Ear exam: PRESENT: normal external ear exam Mouth exam: PRESENT: moist, tongue midline Respiratory exam: PRESENT: clear to auscultation alex, symmetrical, unlabored. ABSENT: accessory muscle use, rales, rhonchi, tachypnea, wheezes Cardiovascular exam: PRESENT: RRR, +S1, +S2. ABSENT: diastolic murmur, systolic murmur GI/Abdominal exam: PRESENT: normal bowel sounds, soft. ABSENT: distended, guarding, tenderness Extremities exam: ABSENT: calf tenderness, pedal edema Musculoskeletal exam: PRESENT: ambulatory, normal inspection Neurological exam: PRESENT: alert, awake, oriented to person, oriented to place, oriented to time, oriented to situation, CN II-XII grossly intact Psychiatric exam: PRESENT: flat affect. ABSENT: agitated, anxious Focused psych exam: ABSENT: delusional, restlessness Results Laboratory Results: 01/30/19 06:55 01/30/19 06:55 01/30/19 01/30/19 01/30/19 06:55 06:55 06:55 WBC 4.0 RBC 3.91 Hgb 12.0 Hct 34.7 L MCV 89 MCH 30.7 MCHC 34.6 RDW 13.6 Plt Count 185 Sodium 137.4 Potassium 3.6 Chloride 103 Carbon Dioxide 27 Anion Gap 7 BUN 7 Creatinine 0.68 Est GFR ( Amer) > 60 Est GFR (Non-Af Amer) > 60 Glucose 131 H Calcium 8.8 Magnesium 1.7 Triglycerides 101 Cholesterol 240.70 H LDL Cholesterol Direct 173 H VLDL Cholesterol 20.0 HDL Cholesterol 39 L TSH 3.66 Free T4 1.06 Free T3 pg/mL 4.24 01/29/19 01/29/19 01/29/19 15:45 15:45 18:10 Creatine Kinase 59 CK-MB (CK-2) Troponin I < 0.012 < 0.012 01/29/19 01/29/19 01/30/19 18:10 18:10 00:44 Creatine Kinase 60 54 CK-MB (CK-2) < 0.22 Troponin I Cancelled 01/30/19 01/30/19 01/30/19 00:44 06:55 06:55 Creatine Kinase 50 CK-MB (CK-2) < 0.22 < 0.22 Troponin I < 0.012 < 0.012 Impressions: KUB X-Ray 01/29/19 00:00 IMPRESSION: Nonobstructive pattern of bowel gas with gas present to the rectum. No large burden of stool in the colon. No free air in the abdomen on supine radiographs. Chest X-Ray 01/29/19 15:39 IMPRESSION: No acute abnormality of the lungs. No focal airspace opacity. Abdomen/Pelvis CT 01/29/19 16:06 IMPRESSION: NO ACUTE FINDINGS IN THE ABDOMEN OR PELVIS ON CT SCAN WITH IV CONTRAST. Qualifiers - * PATIENT BEING DISCHARGED WITH ANY OF THE FOLLOWING DIAGNOSIS: No Acute Heart Failure - Is this a Heart Failure Patient?: No Plan Discharge Plan: As above Time Spent: Greater than 30 Minutes
--- NOTE | 2019-01-30 23:54 | DRAGON STRESS TEST REPORT ---
Intravenous Lexiscan Cardiolite stress test using single photon emmision computerized tomography. Date of procedure: 01/30/2019. Ordering Provider: Dr. Moi Portillo. Patient's status: NCAT patient. Indication: Chest pain. Coronary risk factors: Age, and hypertension. Resting EKG: Sinus Rhythm Within Normal Limits. Stress EKG: No changes of ischemia. The patient soon after the stress test protocol was finished, the patient developed left front of the chest tightness which improved with the first nitroglycerin given sublingually. 5 minutes later the second sublingual nitroglycerin was given and the patient was symptom-free. There were no EKG changes. There were no arrhythmias seen. Patient's heart rate after the end of the procedure and after the sublingual nitroglycerin, the patient was chest pain-free, the patient's pulse was 96 bpm, with a blood pressure 138/94. Physical examination was unremarkable. Reason for termination: Protocol. Conclusions: Normal EKG and hemodynamic response to IV Lexiscan. Post Lexiscan during the end of the procedure the patient had chest tightness. But there was no EKG changes, albeit relieved totally with the patient having taken 2 sublingual nitroglycerin 5 minutes apart. Nuclear data: At rest the patient was given 13.43 millicuries of technetium 99m sestamibi injected intravenously. As per protocol rest non gated SPECT images were obtained. Subsequently the patient was given intravenous Lexiscan at a dose of 0.4 mg in 5 mL intravenously, followed by flush with normal saline. Subsequently the stress dose of 40.1 millicuries of technetium 99m sestamibi was injected intravenously. As per protocol stress gated images were obtained. Nuclear interpretation: Review of images showed that all segments of the myocardium had normal perfusion at rest, and normal perfusion post stress with IV Lexiscan. All segments of the myocardium had normal motion, contraction, and thickening by gated study. T. I D. ratio was normal at 1.01. There is no transient ischemic dilatation of the left ventricle. Computer read rest, and stress left ventricular ejection fraction were 61 %, and 60 %, respectively. IMPRESSION:: 1. There is no scintigraphic evidence of Lexiscan induced myocardial ischemia. 2. There is no scintigraphic evidence of myocardial infarction/scar. Recommendations: Aggressive risk factor modification, and treating the underlying co- morbidities. At the request of Dr. Schneider, the hospitalist attending physician, I interviewed the patient and examined her briefly. The patient all somewhat atypical. She is not on any medical therapy. Hence would recommend that the patient be placed on cardioprotective medication including aspirin, beta blockers. And sublingual nitroglycerin, and amlodipine. If on good medical therapy the patient continues to have chest pain then would recommend cardiac catheterization. The patient has been given my cell phone number to contact me if she should have any problems. Also I have made arrangements for the patient to follow-up with me. Will follow the patient closely as an outpatient. This has been discussed with the patient. The patient desires to be started on medical therapy, rather than undergo cardiac catheterization right away. LEI
--- NOTE | 2019-01-31 00:34 | EKG REPORT ---
SEVERITY:- NORMAL ECG - SINUS RHYTHM : Confirmed by: Brett Meyer 31-Jan-2019 00:33:52
== END 2019-01-30 19:18 | disposition home or self-care (01) ==
LOC: ER 15:16 → INTOOBSV 23:24 → EH 23:24 → OBSVTOIN 23:24 → 5 01-30 00:53
PROVIDERS: ADMIT Emergency Medicine; ATTEND Emergency Medicine
DX: R07.9 Chest pain, unspecified (principal); K62.5 Hemorrhage of anus and rectum; R11.2 Nausea with vomiting, unspecified; R19.7 Diarrhea, unspecified; I25.10 Atherosclerotic heart disease of native coronary artery without angina pectoris; G47.30 Sleep apnea, unspecified; E66.9 Obesity, unspecified; E78.5 Hyperlipidemia, unspecified; G43.909 Migraine, unspecified, not intractable, without status migrainosus; R73.9 Hyperglycemia, unspecified; M19.90 Unspecified osteoarthritis, unspecified site; F32.9 Major depressive disorder, single episode, unspecified; R10.30 Lower abdominal pain, unspecified; R03.0 Elevated blood-pressure reading, without diagnosis of hypertension; K64.4 Residual hemorrhoidal skin tags; K64.8 Other hemorrhoids
CPT/HCPCS: 93005 ×2; 99285; 36415 ×2; 84439; 82553 ×2; 82550 ×2; 83735; 84443; 85025; 85027; 81025; 80048; 80053; 81001; 84484 ×2; 84481; 83036; 80061; 93017; 71046; 74018; 78452; 74177; 93010 ×2; G0378 ×2; A9500; J2785; J3490; J7120 ×2; Q9969